=== PATIENT | female | born 1990 | race Caucasian/White ===

== ENCOUNTER 2020-01-12 13:38 | Emergency (ER) | payer OTHER, SELFPAY ==
--- NOTE | ~2020-01-12 | CT_ITS ---
EXAMINATION: CT brain wo con DATE: 01/12/2020 14:50 INDICATION: Headache. Left upper extremity numbness. Dizziness. TECHNIQUE: Computed tomography (CT) of the head was performed without intravenous contrast. The mA wa s adjusted according to patient size. Iterative reconstruction technique was employed. The dose-lengt h product was 529.67 mGy-cm. COMPARISON: None FINDINGS: There is no intracranial hemorrhage, acute infarction, or abnormal intracranial mass lesion . The ventricles are normal in size. There is mild mucosal thickening in the paranasal sinuses. There is a small left mastoid effusion. IMPRESSION: 1. Normal brain. Reviewed, dictated and finalized at location B. IMPRESSION: 1. Normal brain.
[2020-01-12 13:45] VITALS: BP 113/81; PULSE 72; RESP 16; TEMP 37; O2SAT 99
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
[2020-01-12 14:24] LABS: Basophils Absolute Auto 0.05 K/mm3 (0.00-0.10); Basophils Percent Auto 0.7 % (0.0-1.0); Eosinophils Absolute Auto 0.32 K/mm3 (0.02-0.50); Eosinophils Percent Auto 4.2 % (1.0-6.0); Hematocrit 40.9 % (35.0-49.0); Hemoglobin 13.2 g/dL (12.0-15.0); Immature Granulocyte Absolute 0.07 K/mm3 (0.00-0.00); Immature Granulocyte Percent A 0.9 % (0.0-0.0); Lymphocytes Absolute Auto 1.88 K/mm3 (1.10-4.50); Lymphocytes Percent Auto 24.7 % (18.0-42.0); Mean Corpuscular HGB Conc 32.3 g/dL (32.0-36.0); Mean Corpuscular Hemoglobin 30.4 pg (27.0-31.0); Mean Corpuscular Volume 94.2 fL (78.0-102.0); Monocytes Absolute Auto 0.58 K/mm3 (0.10-0.90); Monocytes Percent Auto 7.6 % (2.0-11.0); Neutrophils Absolute Auto 4.7 K/mm3 (1.7-7.2); Neutrophils Percent Auto 61.9 % (50.0-70.0); Platelet Count Result 250 K/mm3 (150-420); Red Blood Count 4.34 M/mm3 (4.20-5.40); Red Cell Distribution Width 11.6 % (11.6-14.4); White Blood Count 7.6 K/mm3 (4.8-10.8)
[2020-01-12 14:30] VITALS: BP 110/75; PULSE 67; RESP 15; O2SAT 100
[2020-01-12] MEDS: MORPHINE SULFATE 2 MG/ML INJ IV PUSH (14:30)
[2020-01-12] MEDS: ONDANSETRON INJ 4 MG/2 ML VIAL IV PUSH (14:30)
[2020-01-12] MEDS: SODIUM CHLORIDE 0.9% IV 500 ML 999 ML IV CONT (14:30)
[2020-01-12 14:37] LABS: Partial Thromboplastin Time 29.6 SEC (22.3-31.6); Prothrombin Time 10.8 Seconds (9.64-11.0)
[2020-01-12 14:43] LABS: Alanine Aminotransferase 21 U/L (14-59); Albumin Level 3.9 g/dL (3.4-5.0); Alkaline Phosphatase 68 U/L (46-116); Anion Gap 7 mmol/L (8-16); Aspartate Amino Transferase 16 U/L (15-37); Bilirubin,Total 0.3 mg/dL (0.00-1.00); Blood Urea Nitrogen 24 mg/dL (7-18); Calcium 9.3 mg/dL (8.5-10.1); Carbon Dioxide 29 mmol/L (21-32); Chloride 104 mmol/L (98-108); Estimated CRCL calculation 76 ml/min; Estimated Glomerular Filt Rate > 60; Glucose 92 mg/dL (70-99); Osmolality Calculated 294 mOsm/kg (285-295); Potassium 3.7 mmol/L (3.5-5.1); Sodium 140 mmol/L (136-145); Total Protein 7.6 g/dL (6.4-8.2)
[2020-01-12 15:08] LABS: Pregnancy On Board Control Positive; Urine Pregnancy Test Negative
[2020-01-12 15:15] VITALS: BP 111/76; PULSE 71; RESP 14; O2SAT 100
--- NOTE | 2020-01-12 15:17 | PC.NURSE ---
12 LEAD EKG ENTERED BY RN UPON PATIENTS ARRIVAL BASED UPON SYMPTOMS. ERP STATES THIS ORDER IS NOT NEEDED. RN REQUESTS ERP TO DELETE 12 LEAD EKG ORDER.
[2020-01-12] MEDS: KETOROLAC 30 MG/ML VIAL (*BKC) IV PUSH (15:49)
[2020-01-12 15:52] VITALS: BP 108/71; PULSE 88; RESP 14; O2SAT 100
== END 2020-01-12 16:01 | disposition home or self-care (01) ==
PROVIDERS: Emergency Provider Emergency Medicine; PCP Physician Assistant
DX: R51 Headache (principal)
CPT/HCPCS: 36415; 70450; 80053; 81025; 85025; 85610; 85730; 96361; 96374; 96375; 99283; 99284; J1885; J2270; J2405; J7040

== ENCOUNTER 2023-04-07 08:44 | Emergency (ER) | payer OTHER, SELFPAY ==
[2023-04-07] VITALS (7 sets, daily range): BP systolic 118–128; BP diastolic 83–90; PULSE 80–91; RESP 18–20; TEMP 36.6–36.7; O2SAT 96–100
--- NOTE | 2023-04-07 08:48 | ECG_ITS ---
Measurements Intervals Alpha Rate: 79 P: 68 VA: 162 QRS: 32 QRSD: 98 T: 31 QT: 349 QTc: 401 Interpretive Statements SINUS RHYTHM BASELINE ARTIFACT- I, III, AVR, AVL, AVF NORMAL ECG NO PREVIOUS ECG AVAILABLE FOR COMPARISON Electronically Signed On 04-07-2023 14:57:52 CODING MACHINE OPERATOR by Parag Lopez D.O.
--- NOTE | 2023-04-07 09:03 | ED.GENADULT ---
HPI - General Adult General Chief complaint: Chest Pain Stated complaint: chest pain Time Seen by Provider: 04/07/23 08:55 History of Present Illness HPI narrative: healthy 32yo woman here with chest pain, onset this morning driving to work, worse with deep breathing and movement. No fevers or chills, leg swelling or pain. Related Data Allergies Allergy/AdvReac Type Severity Reaction Status Date / Time Penicillins Allergy Mild Unknown Verified 04/07/23 09:48 Review of Systems Review of Systems: All systems reviewed & are unremarkable except as noted in HPI and below Constitutional: Constitutional: Denies chills and Denies fever(s) ENT: Denies dizziness Cardiovascular: Cardiovascular: Reports chest pain Respiratory: Respiratory: Denies dyspnea PMFSH Past Medical History Medical History (Updated 04/07/23 @ 09:06 by Ottoniel Everett MD) Migraine Surgical History Surgical History H/O tubal ligation Social History Social History Smoking status: Never smoker Alcohol intake: never Substance use: never Living arrangements: alone Occupation/Education: occupation 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 Exam Const: General: healthy appearing and no acute distress Nutritional Appearance: well nourished Eyes: Conjunctivae: conjunctivae normal Resp: Effort & Inspection: normal respiratory effort Auscultation: clear to auscultation bilaterally Cardio: Rate: regular rate Rhythm: regular rhythm Heart sounds: no murmurs GI: Inspection: non-distended Extrem: General: no clubbing, cyanosis or edema Course Vital Signs Vital signs: Vital Signs Temperature 36.6 C 04/07/23 08:45 Pulse Rate 89 04/07/23 08:45 Respiratory Rate 18 04/07/23 08:45 Blood Pressure 125/90 04/07/23 08:45 Pulse Oximetry 96 04/07/23 08:45 Oxygen Delivery Room Air 04/07/23 08:45 Temperature 36.6 C 04/07/23 08:45 Pulse Rate 89 04/07/23 08:45 Respiratory Rate 18 04/07/23 08:45 Blood Pressure 125/90 04/07/23 08:45 Pulse Oximetry 96 04/07/23 08:51 Oxygen Delivery Room Air 04/07/23 08:45 Medical Decision Making MDM Narrative Medical decision making narrative: low risk chesrt pain DDx costochondritis, pleurisy, less likely myocarditis/pericarditis. No evidence of pneumothorax, coronary syndrome, venous thromboembolism. Vital Signs Vital Signs: Vital Signs Temperature 36.6 C 04/07/23 08:45 Pulse Rate 89 04/07/23 08:45 Respiratory Rate 18 04/07/23 08:45 Blood Pressure 125/90 04/07/23 08:45 Pulse Oximetry 96 04/07/23 08:45 Oxygen Delivery Room Air 04/07/23 08:45 Temperature 36.6 C 04/07/23 08:45 Pulse Rate 89 04/07/23 08:45 Respiratory Rate 18 04/07/23 08:45 Blood Pressure 125/90 04/07/23 08:45 Pulse Oximetry 96 04/07/23 08:51 Oxygen Delivery Room Air 04/07/23 08:45 Discharge Plan Discharge Clinical Impression: Acute costochondritis Patient Disposition: Home, Self-Care Condition: Improved Instructions: Antibiotic Form Additional Instructions: Your labs and EKG are all normal. Your pain is just from a mild inflammation of the chest wall. It is not serious, but can be painful. Take the prescribed medications as needed to help with your pain. As for Bupropion, stop the 150 mg dose and instead change to 100 mg twice a day. We sent a new prescription to your pharmacy. See your new doctor so that in one month you can reduce your dose again from 100 mg twice a day to 75 mg twice a day, and so one until it is fully weaned off. Prescriptions: New ketorolac 10 mg tablet 10 mg PO Q6H PRN (Reason: moderate to severe acute pain) 5 Days Qty: 15 0RF methocarbamol 500 mg tablet 1,000 mg PO Q6H PRN (Reason: muscle pain) Qty: 40 0RF bupropion HCl 100 mg tablet sustaine
[2023-04-07 09:14] LABS: Basophils Absolute Auto 0.08 K/mm3 (0.00-0.10); Basophils Percent Auto 1.1 % (0.0-1.0); Eosinophils Absolute Auto 0.22 K/mm3 (0.02-0.50); Eosinophils Percent Auto 3.1 % (1.0-6.0); Hemoglobin 13.8 g/dL (12.0-15.0); Immature Granulocyte Absolute 0.06 K/mm3 (0.00-0.00); Immature Granulocyte Percent A 0.8 % (0.0-0.0); Lymphocytes Absolute Auto 1.65 K/mm3 (1.10-4.50); Mean Corpuscular HGB Conc 32.9 g/dL (32.0-36.0); Mean Corpuscular Hemoglobin 30.1 pg (27.0-31.0); Mean Corpuscular Volume 91.5 fL (78.0-102.0); Monocytes Absolute Auto 0.52 K/mm3 (0.10-0.90); Monocytes Percent Auto 7.2 % (2.0-11.0); Neutrophils Absolute Auto 4.7 K/mm3 (1.7-7.2); Neutrophils Percent Auto 64.8 % (50.0-70.0); Platelet Count Result 290 K/mm3 (150-420); Red Blood Count 4.59 M/mm3 (4.20-5.40); Red Cell Distribution Width 12.2 % (11.6-14.4); White Blood Count 7.2 K/mm3 (4.8-10.8)
[2023-04-07] MEDS: SODIUM CHLORIDE 0.9% IV 1,000 ML 999 ML IV CONT (09:23)
[2023-04-07] MEDS: ASPIRIN 81 MG CHEWABLE TABLET 324 MG PO (09:24)
[2023-04-07] MEDS: KETOROLAC 30 MG/ML VIAL (*BKC) IV PUSH (09:24)
[2023-04-07 09:32] LABS: Alanine Aminotransferase 31 U/L (14-59); Albumin Level 3.8 g/dL (3.4-5.0); Alkaline Phosphatase 77 U/L (46-116); Anion Gap 11 mmol/L (8-16); Aspartate Amino Transferase 13 U/L (15-37); Bilirubin,Total 0.3 mg/dL (0.00-1.00); Blood Urea Nitrogen 15 mg/dL (7-18); Calcium 9.4 mg/dL (8.5-10.1); Carbon Dioxide 26 mmol/L (21-32); Chloride 104 mmol/L (98-108); Estimated CRCL calculation 72 ml/min; Estimated Glomerular Filt Rate > 60; Glucose 92 mg/dL (70-99); Osmolality Calculated 292 mOsm/kg (285-295); Potassium 3.9 mmol/L (3.5-5.1); Sodium 141 mmol/L (136-145); Total Protein 7.6 g/dL (6.4-8.2); Troponin I < 4.0 ng/L (0.00-60.4)
[2023-04-07 09:46] LABS: D Dimer 0.29 mg/L (0.19-0.50)
== END 2023-04-07 10:39 | disposition home or self-care (01) ==
LOC: CHSED 09:39
PROVIDERS: Emergency Provider Emergency Medicine; PCP Physician Assistant
DX: M94.0 Chondrocostal junction syndrome [Tietze] (principal)
CPT/HCPCS: 36415; 80053; 84484; 85025; 85380; 93005; 96361; 96374; 99284; A9270; J1885; J7030